=== PATIENT | female | born 1990 | race Two or more races ===

== ENCOUNTER 2021-08-27 06:02 | Emergency (ER) | payer MEDICAID ==
[~2021-08-27] VITALS: Ht 154.9 cm; Wt 59.9 kg
--- NOTE | 2021-08-27 06:47 | NUR ---
PATIENT BIBS C/O "TAMPON BEING STUCK". PATIENT ALERT AND ORIENTED X4 AMBULATORY WITH NON LABORED BREATHING. PATIENT IN A GOWN AND IN BED 16.
--- NOTE | 2021-08-27 07:25 | NUR ---
Patient discharged to home in stable condition. Written and verbal after care instructions given. Patient verbalizes understanding of instruction.
[2021-08-27 07:26] VITALS: BP 110/66
== END 2021-08-27 07:26 | disposition home or self-care (01) ==
LOC: ER 06:05
DX: R10.2 Pelvic and perineal pain (principal)

== ENCOUNTER 2021-12-28 18:14 | Emergency (ER) | payer MEDICAID ==
[~2021-12-28] VITALS: Ht 154.9 cm; Wt 59.9 kg
--- NOTE | 2021-12-28 18:14 | NUR ---
PT BIB SELF C/O URINARY FREQUENCY/FLANK PAIN X 4 DAYS. PT IS AAOX4, NOT IN RESPIRATORY DISTRESS, V/S STABLE, KEPT RESTED AND COMFORTABLE. WILL CONTINUE TO MONITOR.
--- NOTE | 2021-12-28 18:27 | NUR ---
SEEN AND EXAMINED BY EPIFANIO NEWMAN.
--- NOTE | 2021-12-28 18:49 | NUR ---
ER PHLEB AT BEDSIDE FOR BLOOD DRAW.
--- NOTE | 2021-12-28 18:56 | NUR ---
URINE SPECIMEN COLLECTED AND SENT TO LAB.
[2021-12-28 19:40] LABS: CALCIUM, SERUM 8.8 mg/dL (8.5-10.1); POTASSIUM 3.8 mmol/L (3.5-5.1)
[2021-12-28 19:52] LABS: ALBUMIN 3.5 g/dL (3.4-5.0); BILIRUBIN,DIRECT 0.1 mg/dL (0.0-0.2); BILIRUBIN,TOTAL 0.5 mg/dL (0.2-1.0); TOTAL PROTEIN, SERUM 7.4 g/dL (6.4-8.2)
[2021-12-28 19:55] LABS: COLOR,URINE YELLOW (YELLOW)
[2021-12-28 19:57] LABS: BILIRUBIN,URINE NEGATIVE (NEGATIVE); LEUKOCYTE ESTERASE ,URINE 3+ (NEGATIVE); NITRITE, URINE NEGATIVE (NEGATIVE); PROTEIN,URINE NEGATIVE (NEGATIVE); UGLUCOSE NEGATIVE (NEGATIVE); UROBILINOGEN,URINE 0.2 EU/dL (0.2)
[2021-12-28 19:59] LABS: BACTERIA,URINE 2+ /HPF (None Seen); SQUAMOUS EPITHELIAL CELL,UR Few /HPF (None Seen); WBC,URINE TOO NUMEROUS TO COUN /HPF (0-3)
[2021-12-28 20:34] LABS: BASOPHILS % (AUTO) 0.2 % (0.0-2.0); EOSINOPHILS % (AUTO) 0.2 % (0.0-6.0); HEMATOCRIT 40 % (33-45); HEMOGLOBIN 13.6 g/dL (11.5-14.8); LYMPHOCYTES # (AUTO) 0.8 K/uL (0.8-4.8); LYMPHOCYTES % (AUTO) 9.6 % (20.0-44.0); MEAN CORPUSCULAR HGB CONC 34 g/dl (31.0-36.0); MEAN CORPUSCULAR VOLUME 92 fL (82-100); MONOCYTES # (AUTO) 0.5 K/uL (0.1-1.30); MONOCYTES % (AUTO) 6.4 % (2.0-12.0); NEUTROPHILS # (AUTO) 7.1 K/uL (1.8-8.9); NEUTROPHILS % (AUTO) 83.6 % (43.0-81.0); PLATELET COUNT (AUTO) 174 K/uL (150-450); RED BLOOD CELL COUNT(AUTO) 4.36 MIL/uL (4.0-5.2); WHITE BLOOD COUNT (AUTO) 8.5 K/uL (4.3-11.0)
[2021-12-28] MEDS ORDERED: KETOROLAC TROMETHAMINE 15 MG/ML VIAL ONE (21:39)
[2021-12-28] MEDS ORDERED: CEFTRIAXONE 1GM BAG (ER ONLY) 50 ML IV ONE ×2 (21:39→22:00)
--- NOTE | 2021-12-28 21:45 | NUR ---
IV CANNULA G18 INSERTED ON RIGHT AC. FLUSHED WITH NS
[2021-12-28] MEDS ORDERED: IV NS 0.9% 1,000 ML BAG IV ONE (22:00)
[2021-12-28] MEDS ORDERED: KETOROLAC TROMETHAMINE INJ 30 MG/ML VIAL IV ONE (22:00)
[2021-12-28] MEDS ORDERED: HYDR-4209 PO (22:19)
[2021-12-28] MEDS ORDERED: CEPH500T PO (22:19)
[2021-12-28] MEDS ORDERED: TAMS-12 PO (22:19)
[2021-12-28] MEDS ORDERED: IBUP-1955 PO (22:19)
--- NOTE | 2021-12-28 22:35 | NUR ---
Patient discharged to home in stable condition. Written and verbal after care instructions given. Patient verbalizes understanding of instruction.
[2021-12-28 22:49] VITALS: BP 110/68
== END 2021-12-28 22:50 | disposition home or self-care (01) ==
LOC: ER 18:26
DX: N39.0 Urinary tract infection, site not specified (principal); N20.0 Calculus of kidney; Z79.899 Other long term (current) drug therapy
CPT/HCPCS: 36415; 74176; 80048; 80076; 81001; 83690; 84703; 85025; 87077; 87086; 87186; 96365; 96375; 99284; J0696; J1885; J7030 ×2